=== PATIENT | male | born 1975 | race Caucasian/White ===

== ENCOUNTER 2019-04-29 08:32 | Inpatient (IN) ==
[2019-04-29] MEDS ORDERED: Famotidine 20 MG/2 ML VIAL IVP ONE (08:43)
[2019-04-29] MEDS ORDERED: Acetaminophen IV 1,000 MG/100 ML INFUS..BTL IVPB ONE (08:43)
[2019-04-29] MEDS ORDERED: Albuterol 2.5 MG/3 ML NEBULIZER IH PRN (08:53)
[2019-04-29] MEDS ORDERED: cefOXitin 2,000 MG in Water for inj. (sterile) 20 ML IVP ONE ×2 (08:53→15:27)
[2019-04-29] MEDS: Ringers Solution, Lactated 1,000 ML IVC SCH ×2 (09:29→12:30)
[2019-04-29] MEDS ORDERED: Ondansetron 4 MG/2 ML VIAL ONE (10:13)
[2019-04-29] MEDS ORDERED: Dexamethasone 4 MG/ML VIAL ONE (10:13)
[2019-04-29] MEDS ORDERED: *HR* Propofol 200 MG/20 ML VIAL IVP ONE ×2 (10:13→11:12)
[2019-04-29] MEDS ORDERED: Lidocaine -MPF 2% 2 ML VIAL ONE (10:13)
[2019-04-29] MEDS ORDERED: *HR* FentaNYL (PF) 100 MCG/2 ML VIAL ONE ×3 (10:13→14:01)
[2019-04-29] MEDS ORDERED: *HR* Rocuronium Bromide 50 MG/5 ML VIAL ONE ×3 (10:13→12:45)
[2019-04-29] MEDS ORDERED: Lidocaine -MPF 4% 5 ML AMPUL ONE (10:13)
[2019-04-29] MEDS ORDERED: Neostigmine Methylsulfate 3 MG/3 ML SYRINGE ONE (10:13)
[2019-04-29] MEDS ORDERED: *HR* Promethazine 25 MG/ML VIAL IVP PRN (11:56)
[2019-04-29] MEDS ORDERED: Ondansetron 4 MG/2 ML VIAL IVP ONE (11:56)
[2019-04-29] MEDS ORDERED: *HR* HYDROmorphone PF 0.5 MG/0.5 ML SYRINGE IVP PRN (11:56)
[2019-04-29] MEDS ORDERED: Ketorolac 30 MG/ML VIAL ONE (13:19)
[2019-04-29] MEDS ORDERED: Ondansetron 4 MG/2 ML VIAL IVP PRN (15:27)
[2019-04-29] MEDS ORDERED: Naloxone 0.4 MG/ML INJ IVP PRN (15:27)
[2019-04-29] MEDS: 0.9 % Sodium Chloride 1,000 ML IVC SCH (16:16)
[2019-04-29] MEDS: Ketorolac 15 MG/ML VIAL IVP SCH ×2 (16:56→23:26)
[2019-04-30] MEDS: 0.9 % Sodium Chloride 1,000 ML IVC SCH (05:16)
[2019-04-30 05:32] LABS: Basophils % 0.2 %; Eosinophils % 0.1 %; Hematocrit 40.2 % (37.5-50.1); Hemoglobin 13.4 g/dL (12.9-16.9); Immature Granulocytes % 0.4 % (0-4); Lymphocytes # 2.2 K/mcL (0.6-4.6); Mean Corpuscular HGB Conc 33.3 g/dL (31.6-35.5); Mean Corpuscular Hemoglobin 30.8 pg (28.0-33.3); Mean Corpuscular Volume 92.4 fL (83.0-100.0); Mean Platelet Volume 9.3 fL (9.4-12.4); Monocytes # 0.9 K/mcL (0.0-1.3); Monocytes % 7.3 %; Neutrophils # 9.1 K/mcL (1.6-8.9); Platelet Count 296 K/mcL (140-400); Red Blood Count 4.35 M/mcL (4.19-5.50); Red Cell Distribution Width 14.2 % (11.5-14.5); White Blood Count 12.4 K/mcL (4.3-11.1)
[2019-04-30 05:56] LABS: BUN/Creatinine Ratio 17 (6-26); Blood Urea Nitrogen 16 mg/dL (6-20); Calcium 8.4 mg/dL (8.6-10.3); Carbon Dioxide 25 mEq/L (23-29); Chloride 108 mEq/L (98-107); Glucose 101 mg/dL (70-105); Osmolality,Calculated 287 (280-300); Potassium 4.1 mEq/L (3.5-5.1); Sodium 138 mEq/L (136-145); eGFR For African Americans > 60 (> 60); eGFR For Non-African Americans > 60 (> 60)
[2019-04-30] MEDS: Ketorolac 15 MG/ML VIAL IVP SCH (06:08)
[2019-04-30 10:02] VITALS: BP 100/62
== END 2019-04-30 11:58 | disposition home or self-care (01) | DRG 331 ==
LOC: SAMDAY 08:32 → 3ANU 15:19
PROVIDERS: ADMIT Surgery; ATTEND Surgery